=== PATIENT | female | born 1975 | race American Indian/Alaskan Native ===

== ENCOUNTER 2018-04-19 14:12 | Observation (INO) | payer OTHER ==
[2018-04-19 14:16] VITALS: BMI 37.8
[2018-04-19 14:54] LABS: GRAN # 4.21 (1.4-6.5); GRAN % 69.3 % (50.0-68.0); HEMOGLOBIN 11.8 g/dL (12.0-16.0); LYMPH # 1.5 (1.2-3.4); LYMPH % 24.9 % (22.0-35.0); MEAN CORPUSCULAR HEMOGLOBIN 28.2 pg (25.0-35.0); MEAN PLATELET VOLUME 10.4 fl (7.0-11.0); MONO # 0.4 (0.1-0.6); MONO % 5.8 % (1.0-6.0); RBC 4.18 10^6/uL (3.5-6.1); WHITE BLOOD COUNT 6.1 10^3/ul (4.5-11.0)
[2018-04-19 15:04] LABS: ALB/GLOB RATIO 1.3 (1.1-1.8); ALT/SGPT 19 U/L (7-56); AST/SGOT 16 U/L (14-36); BLOOD UREA NITROGEN 10 mg/dL (7-21); CALCIUM 9.1 mg/dL (8.4-10.5); GFR AFRICAN-AMERICAN > 60; GFR NON-AFRICAN AMERICAN > 60
[2018-04-19 15:15] LABS: TROPONIN I < 0.01 ng/mL
--- NOTE | 2018-04-19 15:50 | ED PDOC ---
Arrival/HPI - General Chief Complaint: Chest Pain Time Seen by Provider: 04/19/18 14:36 Historian: Patient - History of Present Illness Narrative History of Present Illness (Text): 04/19/18 15:45 A 42 y/o F w/ h/o benign intrathoracic tumor s/p resection in 09/2017, presents to the emergency department complaining of mid-sternal chest pain ongoing for the last couple of days. Patient reports also experiencing pluerisy worsened with inspiration, and some left lower extremity pain. She reports her symptoms similar to when her previous tumor was diagnosed. She denies any recent OCP use , recent travel, history of chemotherapy, lower extremity edema, back pain, syncopal episodes, family history of hypercoagulability or bleeding disorders at this time. Patient denies fever, chills, back pain, abdominal pain, weakness , headaches or any other complaints at this time. PMD: Dr. Quezada Time/Duration: < week (4 days) Symptom Onset: Sudden Symptom Course: Unchanged Past Medical History - Provider Review Nursing Documentation Reviewed: Yes - Travel History Have you recently traveled outside [place] w/in the past 3 mons?: No - Infectious Disease Hx of Infectious Diseases: None - Musculoskeletal/Rheumatological Hx Falls: No - Gastrointestinal Hx Gastritis: Yes - Psychiatric Hx Substance Use: No - Surgical History Other/Comment: tumor removed in between the lung and heart sep 16, 2017 - Anesthesia Hx Anesthesia: Yes Hx Anesthesia Reactions: No Hx Malignant Hyperthermia: No - Suicidal Assessment Feels Threatened In Home Enviroment: No Family/Social History - Physician Review Nursing Documentation Reviewed: Yes Family/Social History: No Known Family HX Smoking Status: Current Some Days Smoker Hx Alcohol Use: No Hx Substance Use: No Allergies/Home Meds Allergies/Adverse Reactions: Allergies peanut Allergy (Verified 06/25/17 17:15) RASH Review of Systems - Physician Review All systems were reviewed & negative as marked: Yes - Review of Systems Constitutional: absent: Fevers, Night Sweats Respiratory: SOB, Cough (dry cough last night before going to sleep.) Cardiovascular: Chest Pain (central pleuritic chest pain.) Gastrointestinal: absent: Abdominal Pain, Constipation, Diarrhea Genitourinary Female: absent: Dysuria, Hematuria Musculoskeletal: absent: Back Pain, Neck Pain, Other (no bilateral leg swelling ; patient notes some pain of left calf region) Skin: absent: Rash, Skin Lesions Neurological: absent: Headache, Dizziness, Focal Weakness Psychiatric: absent: Anxiety Physical Exam Vital Signs Reviewed: Yes Vital Signs Temp Pulse Resp BP Pulse Ox 04/19/18 16:54 86 19 155/119 H 100 04/19/18 14:12 98.3 F 101 H 18 140/80 97 Temperature: Afebrile Blood Pressure: Normal Pulse: Regular Respiratory Rate: Normal Appearance: Positive for: Well-Appearing Pain Distress: None Mental Status: Positive for: Alert and Oriented X 3 - Systems Exam Head: Present: Atraumatic, Normocephalic Pupils: Present: PERRL Extroacular Muscles: Present: EOMI Conjunctiva: Present: Normal Mouth: Present: Moist Mucous Membranes Neck: Present: Normal Range of Motion Respiratory/Chest: Present: Clear to Auscultation (bilaterally), Good Air Exchange. No: Respiratory Distress, Accessory Muscle Use, Wheezes, Rales, Rhonchi Cardiovascular: Present: Regular Rate and Rhythm, Normal S1, S2. No: Murmurs Abdomen: No: Tenderness, Distention, Peritoneal Signs Back: Present: Other (healed surgical scar to right-side of back) Upper Extremity: Present: Normal Inspection. No: Cyanosis, Edema Lower Extremity: Present: Normal Inspection. No: Edema Neurological: Present: GCS=15, CN II-XII Intact, Speech Normal Skin: Present: Warm, Dry, Normal Color. No: Rashes Psychiatric: Present: Alert, Oriented x 3, Normal Insight, Normal Concentration Medical Decision Making ED Course and Treatment: 04/19/18 15:50 Impression: 42 year old female with central pleuritic chest pain. HEART Score:1 PERC Score: 0 Wells Score: 1 Patient has history of surgery that was performed in September 2017, however, based on clinical presentation cannot have PE ruled out. She will have D dimer performed and will be reassessed for any changes in her chest pain. CTPE will be considered if D-dimer elevated. Differential Diagnosis included but are not limited to: Myocarditis/Pericarditis PNA PE Costochondritis Plan: -- EKG -- Chest X-ray -- Labs --CTPE -- Reassess and disposition Progress Notes: 04/19/2018 16:05 Chest X-ray IMPRESSION: No active disease. Dictator: Cain Mcgee MD 04/19/18 18:04 D-dimer noted to be elevated. Troponin negative with CXR showing Shared decision making discussion with patient regarding the need for CT scan to rule out PE, desiring to proceed with the imaging study. CTPE ordered. 04/19/18 20:08 CTPE shows no major PE, but cannot exclude subsegmental PE. Discussion with patient to stay for Observation in hospital for repeat V/Q scan in the morning. Patient acknowledges plan for Observation and is willing to stay. Call placed to Dr. Palmer. 04/19/18 20:[address] Palmer who accepts patient onto her service for Observation. - Lab Interpretations Lab Results: 04/19/18 14:30 04/19/18 14:30 Lab Results 04/19/18 15:26: Urine HCG, Qual Negative 04/19/18 14:30: PT 12.3, INR 1.08, APTT 31.2, D-Dimer, Quantitative 288 H 04/19/18 14:30: Sodium 143, Potassium 3.7, Chloride 106, Carbon Dioxide 26, Anion Gap 14, BUN 10, Creatinine 0.7, Est GFR ( Amer) > 60, Est GFR (Non- Af Amer) > 60, Random Glucose 108, Calcium 9.1, Total Bilirubin 0.6, AST 16, ALT 19, Alkaline Phosphatase 61, Troponin I < 0.01, Total Protein 7.1, Albumin 4.0, Globulin 3.1, Albumin/Globulin Ratio 1.3 04/19/18 14:30: WBC 6.1, RBC 4.18, Hgb 11.8 L, Hct 34.7 L, MCV 83.0 D, MCH 28.2 , MCHC 34.0, RDW 14.0, Plt Count 216, MPV 10.4, Gran % 69.3 H, Lymph % (Auto) 24.9, [place] % (Auto) 5.8, Eos % (Auto) 0.0 L, Baso % (Auto) 0.0, Gran # 4.21, Lymph # (Auto) 1.5, [place] # (Auto) 0.4, Eos # (Auto) 0.0, Baso # (Auto) 0.00 - RAD Interpretation Radiology Orders: 04/19/18 14:36 CHEST TWO VIEWS (PA/LAT) [RAD] Stat 04/19/18 18:02 ANGIO CHEST PE PROTOCOL [CT] Stat - EKG Interpretation EKG Interpretation (Text): NSR @ 95 w/ no ST depressions or elevations. No T wave inversions Interpreted by ED Physician: Yes Type: 12 lead EKG - Medication Orders Current Medication Orders: Discontinued Medications Enoxaparin Sodium (Lovenox) 40 mg SC STAT STA PRN Reason: Protocol Stop: 04/19/18 20:19 Ketorolac Tromethamine (Toradol) 60 mg IM STAT STA Stop: 04/19/18 16:34 Last Admin: 04/19/18 16:55 Dose: 60 mg MAR Pain Assessment Document 04/19/18 16:55 SRE (Rec: 04/19/18 16:57 SRE [id number]) Pain Reassessment Is this a pain reassessment? Yes Sleep Is patient sleeping during reassessment? No Presence of Pain Presence of Pain Yes Pain Scale Used Pain Scale Used Numeric Location Pain Location Body Site Chest Description Description Intermittent IM Administration Charges Document 04/19/18 16:55 SRE (Rec: 04/19/18 16:57 SRE [id number]) Charges for Administration # of IM Administrations 1 Oxycodone/Acetaminophen (Percocet 5/325 Mg Tab) 1 tab PO STAT STA Stop: 04/19/18 19:41 Last Admin: 04/19/18 20:01 Dose: 1 tab MAR Pain Assessment Document 04/19/18 20:01 SS (Rec: 04/19/18 20:14 SS [facility] [id number] Pain Reassessment Is this a pain reassessment? Yes Sleep Is patient sleeping during reassessment? No Presence of Pain Presence of Pain Yes Pain Scale Used Pain Scale Used Numeric Location Pain Location Body Site Chest - Scribe Statement The provider has reviewed the documentation as recorded by the Sharon Fair Provider Scribe Provider Scribe Attestation: All medical record entries made by the Sharon were at my direction and personally dictated by me. I have reviewed the chart and agree that the record accurately reflects my personal performance of the history, physical exam, medical decision making, and the department course for this patient. I have also personally directed, reviewed, and agree with the discharge instructions and disposition. Disposition/Present on Arrival - Present on Arrival Any Indicators Present on Arrival: No History of DVT/PE: No History of Uncontrolled Diabetes: No Urinary Catheter: No History of Decub. Ulcer: No History Surgical Site Infection Following: None - Disposition Have Diagnosis and Disposition been Completed?: Yes Diagnosis: Chest pain Disposition Time: 20:00 Patient Plan: Observation Condition: STABLE
--- NOTE | 2018-04-19 16:07 | RAD ---
Date of service: 04/19/2018 HISTORY: chest pain ongoing for 1 week COMPARISON: No prior. TECHNIQUE: Chest PA and lateral FINDINGS: LUNGS: No active pulmonary disease. PLEURA: No significant pleural effusion identified. No pneumothorax apparent. CARDIOVASCULAR: Mild cardiomegaly OSSEOUS STRUCTURES: No significant abnormalities. VISUALIZED UPPER ABDOMEN: Normal. OTHER FINDINGS: None. IMPRESSION: No active disease.
[2018-04-19 16:44] LABS: INR 1.08; PARTIAL THROMBOPLASTIN TIME 31.2 Seconds (25.1-36.5); PROTHROMBIN TIME 12.3 SECONDS (9.4-12.5)
[2018-04-19] MEDS ORDERED: Iohexol 350 MG/100 ML VIAL ONE (18:41)
[2018-04-19] MEDS ORDERED: Oxycodone/Acetaminophen 5/325 mg Tab PO STA (19:40)
[2018-04-19] MEDS ORDERED: Enoxaparin 40 mg Syringe SC STA (20:18)
[2018-04-19 22:08] VITALS: O2SAT 99
--- NOTE | 2018-04-19 23:45 | CP.PCM.HP ---
<Quentin Brand - Last Filed: 04/20/18 04:51> History of Present Illness - History of Present Illness History of Present Illness: Quentin Brand, PGY-1, History and Physical note for Dr. Trejo. CC: pleuritic chest pain and shortness of breath 42 year old female with past medical history of benign mediastinal mass s/p resection in 09/2017 presents with pleuritic chest pain and shortness of breath that started 4 days ago. Patient reports that pain is worse with inspiration, expiration, and palpation. Patient took Allieve and Oxycodone for the pain, which relieved the pain, however, once the medication wore off, the patient was once again in pain. Patient reports taking phentermine for weight loss in the past but does not take the medication at the moment. Patient reports dizziness, headache, and chronic right arm pain and numbness, and chronic back pain. Patient reports no recent travel. Patient reports having the same symptoms prior to being diagnosed with the mediastinal mass. 12-point ROS was negative except for information above. PMH: mediastinal mass PSH: mediastinal mass resection in 09/2017, 20 years ago Allergies: peanuts FMHx: Mother from CAD. Father from CAD. Grandmother and had history of breast cancer. SHx: smokes 6-7 cigarettes a day for last 18 years. Occassional alcohol use. Patient smokes marijuana daily. Patient works at a salon. PMD: Dr. Quezada Pharmacy: [facility] Insurance: [facility] Present on Admission - Present on Admission Any Indicators Present on Admission: No History of DVT/PE: No History of Uncontrolled Diabetes: No Review of Systems - Constitutional Constitutional: Headache. absent: Chills, Fever, Weight Loss - EENT Eyes: absent: Change in Vision Ears: absent: Decreased Hearing Nose/Mouth/Throat: absent: Sore Throat - Cardiovascular Cardiovascular: Chest Pain (pleuritic) - Respiratory Respiratory: Dyspnea. absent: Cough, Hemoptysis - Gastrointestinal Gastrointestinal: Heartburn, Nausea. absent: Constipation, Diarrhea, Vomiting - Musculoskeletal Musculoskeletal: Back Pain (lower musculoskeletal back pain) - Neurological Neurological: Dizziness, Numbness (right arm), Headaches. absent: Loss of Vision - Psychiatric Psychiatric: absent: Anxiety, Memory Loss Past Patient History - Infectious Disease Hx of Infectious Diseases: None - Past Social History Smoking Status: Current Some Days Smoker - CARDIAC Hx Cardiac Disorders: No - PULMONARY Hx Respiratory Disorders: No - NEUROLOGICAL Hx Neurological Disorder: No - HEENT Hx HEENT Problems: No - RENAL Hx Chronic Kidney Disease: No - ENDOCRINE/METABOLIC Hx Endocrine Disorders: No - HEMATOLOGICAL/ONCOLOGICAL Hx Blood Disorders: No - INTEGUMENTARY Hx Dermatological Problems: No - MUSCULOSKELETAL/RHEUMATOLOGICAL Hx Musculoskeletal Disorders: No - GASTROINTESTINAL Hx Gastrointestinal Disorders: No - GENITOURINARY/GYNECOLOGICAL Hx Genitourinary Disorders: No - PSYCHIATRIC Hx Psychophysiologic Disorder: Yes (smoking marijuana) - SURGICAL HISTORY Hx Surgeries: Yes (c.section ,tumor was removed from midsternal chest) - ANESTHESIA Hx Anesthesia: Yes Hx Anesthesia Reactions: No Hx Malignant Hyperthermia: No Meds Allergies/Adverse Reactions: Allergies Allergy/AdvReac Type Severity Reaction Status Date / Time peanut Allergy RASH Verified 06/25/17 17:15 Physical Exam - Constitutional Appears: Well, Non-toxic - Head Exam Head Exam: ATRAUMATIC, NORMOCEPHALIC - Eye Exam Eye Exam: EOMI, PERRL - Respiratory Exam Respiratory Exam: Clear to Auscultation Bilateral, NORMAL BREATHING PATTERN - Cardiovascular Exam Cardiovascular Exam: REGULAR RHYTHM, RRR - GI/Abdominal Exam GI & Abdominal Exam: Normal Bowel Sounds, Soft - Extremities Exam Extremities exam: Positive for: calf tenderness (left sided), full ROM, normal inspection - Back Exam Back exam: NORMAL INSPECTION - Neurological Exam Neurological exam: Alert, CN II-XII Intact, Oriented x3 - Psychiatric Exam Psychiatric exam: Normal Affect, Normal Mood - Skin Skin Exam: Dry, Intact, Normal Color Results - Vital Signs Recent Vital Signs: Last Vital Signs Temp 98.1 F 04/19/18 23:27 Pulse 88 04/19/18 23:27 Resp 20 04/19/18 23:27 BP 142/94 H 04/19/18 23:27 Pulse Ox 99 04/19/18 23:27 - Labs Result Diagrams: 04/19/18 14:30 04/19/18 14:30 Assessment & Plan - Assessment and Plan (Free Text) Assessment: 42 year old female with past medical history of benign mediastinal mass s/p resection in 09/2017 presents with pleuritic chest pain and shortness of breath that started 4 days ago. Patient was admitted for chest pain secondary to PE vs. costochondritis. Plan: Chest Pain 2/2 to pulmonary embolism vs. costochondritis vs. ACS vs. postsurgical pain syndrome -D-Dimer: elevated at 288. Thus, evaluation for PE is warrented. -Chest CT: no evidence of acute pulmonary embolism up to the major segmental level. One or more very small peripheral pulmonary emboli cannot be excluded. Main pulmonary artery is dilated, similar to prior CT. -V/Q scan ordered to rule out PE due to inconclusive CT for subsegmental PE. -Duplex of bilateral lower extremities to rule out DVT. -EKG: normal sinus rhythm -Troponinx1: <0.01. 2 more troponin levels to be trended every 6 hours to rule out ACS -HgbA1c, Lipid Panel, TSH, ordered to evaluate for cardiac risk factors. -UDS ordered. -Heart healthy diet -Vital signs Q4 -Therapeutic lovenox 100 mg Q12 for suspected DVT/PE -Acetaminophen 650mg Q6PRN for pain Normocytic Anemia -Hgb: 11.8. Baseline from 1 year ago is 13.0 -Continue to monitor. Elevated Blood Pressure likely 2/2 to pain -Patient found to be hypertensive at 155/119 -Patient does not have a history of hypertension and does not take any antihypertensive medications. -Continue to monitor. Smoking Cessation Counseling -Patient counseled extensively regarding smoking cessation. -Patient to be given the option for nicotine patches in hospital and on discharge. Hx of GERD -Patient reports not taking any medication for GERD. -Patient will be started on protonix 40 mg daily in the hospital. Patient seen and examined with Dr. Trejo. - Date & Time Date: 04/19/18 Time: 23:59 <Evangelista Trejo - Last Filed: 04/20/18 06:16> Results - Vital Signs Recent Vital Signs: Last Vital Signs Temp 98.9 F 04/20/18 06:00 Pulse 80 04/20/18 06:00 Resp 18 04/20/18 06:00 BP 137/90 04/20/18 06:00 Pulse Ox 99 04/20/18 06:00 - Labs Result Diagrams: 04/19/18 14:30 04/19/18 14:30 Labs: Laboratory Results - last 24 hr 04/20/18 00:05 Troponin I < 0.01 Attending/Attestation - Attestation I have personally seen and examined this patient.: Yes I have fully participated in the care of the patient.: Yes I have reviewed all pertinent clinical information: Yes Notes (Text): Chest pain is unlikely cardiac in origin. But will have to r/o ACS. Given her elevated D-dimer, with recent surgery and history of smoking PE has to be ruled out. Will f/u V/Q scan findings. c/w therapeutic lovenox for now. US Dop of Lyndsay/Wilfredo FIELD. 04/20/18 06:14
[2018-04-20] MEDS: Pantoprazole 40 mg EC Tab PO SCH (05:25)
[2018-04-20] MEDS ORDERED: Enoxaparin 100 mg Syringe SC SCH (06:00)
[2018-04-20] MEDS: Enoxaparin 120 mg Syringe SC SCH ×2 (08:30→22:19)
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
--- NOTE | 2018-04-20 09:21 | CT ---
Date of service: 04/19/2018 PROCEDURE: CT Chest with contrast (Pulmonary Angiogram) HISTORY: SOB w/ reproducible chest pain, elevated D-dimer COMPARISON: None available. TECHNIQUE: Axial computed tomography images were obtained of the chest in the pulmonary arterial phase of enhancement. Coronal and sagittal reformatted images were created and reviewed. Intravenous contrast dose: 100 cc of Omni 350 Radiation dose: Total exam DLP = 484 mGy-cm. This CT exam was performed using one or more of the following dose reduction techniques: Automated exposure control, adjustment of the mA and/or kV according to patient size, and/or use of iterative reconstruction technique. FINDINGS: PULMONARY ARTERIES: Unremarkable. No pulmonary embolism. AORTA: No acute findings. No thoracic aortic aneurysm. LUNGS: Unremarkable. No nodule, mass or pulmonary consolidation. PLEURAL SPACES: Unremarkable. No effusion or pneumothorax. HEART: Unremarkable. No cardiomegaly. No significant pericardial effusion. Postoperative changes are seen in the mediastinum. There is dilatation of the proximal esophagus. LYMPH NODES: No lymphadenopathy. BONES, CHEST WALL: Unremarkable. No fracture or destructive lesion OTHER FINDINGS: The report concurs with the preliminary [facility] report IMPRESSION: Unremarkable CT pulmonary angiogram. No pulmonary embolus.
--- NOTE | 2018-04-20 09:59 | CARD ---
APPROVED REPORT Date of service: 04/19/2018 EKG Measurement Heart [id number] ID [id number] <Conclusion> Normal sinus rhythm Normal ECG
[2018-04-20 10:37] LABS: GRAN # 2.17 (1.4-6.5); GRAN % 54.8 % (50.0-68.0); HEMOGLOBIN 11.1 g/dL (12.0-16.0); LYMPH # 1.5 (1.2-3.4); LYMPH % 37.9 % (22.0-35.0); MEAN CORPUSCULAR HEMOGLOBIN 28.2 pg (25.0-35.0); MEAN CORPUSCULAR HGB CONC 33.6 g/dl (31.0-37.0); MEAN PLATELET VOLUME 10.4 fl (7.0-11.0); MONO # 0.3 (0.1-0.6); MONO % 7.3 % (1.0-6.0); RBC 3.93 10^6/uL (3.5-6.1); RED CELL DISTRIBUTION WIDTH 13.9 % (11.5-14.5)
--- NOTE | 2018-04-20 10:48 | NM ---
Date of service: 04/20/2018 COMPARISON: April 19, 2018. Two-view chest. April 19, 2018. CT pulmonary angiogram tto TECHNIQUE: 38.2 mCi technetium 99-m Xe-133 Gas. 3.8 mCI technetium 99-m MAA administered intravenously. FINDINGS: VENTILATION COMPONENT: Normal.Retention of radionuclide in the tracheobronchial tree and ingestion of radionuclide in the stomach, incidental findings PERFUSION COMPONENT: Heterogeneous distribution of radionuclide. No geographic, segmental, lobar abnormalities apparent on the present examination. IMPRESSION: Low probability ventilation perfusion scan for pulmonary embolism.
[2018-04-20 10:56] LABS: ALB/GLOB RATIO 1.3 (1.1-1.8); ALBUMIN 3.5 g/dL (3.0-4.8); ALT/SGPT 16 U/L (7-56); AST/SGOT 12 U/L (14-36); BLOOD UREA NITROGEN 11 mg/dL (7-21); CALCIUM 8.8 mg/dL (8.4-10.5); GFR AFRICAN-AMERICAN > 60; GFR NON-AFRICAN AMERICAN > 60; HDL CHOLESTEROL 40 mg/dL (29-60)
[2018-04-20 11:00] LABS: LDL CHOLESTEROL 113 mg/dL (0-129)
[2018-04-20 11:03] LABS: TROPONIN I < 0.01 ng/mL
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
--- NOTE | 2018-04-20 11:50 | US ---
HISTORY: Leg pain and swelling. Evaluate for DVT PHYSICIAN(S): Ronan Esteves MD. TECHNIQUE: Duplex sonography and color-flow Doppler with graded compression were used to evaluate the deep venous systems of both lower extremities. FINDINGS: The visualized deep venous systems of both lower extremities are sonographically normal and compressible. Normal wave forms and augmentation are seen. There is no sonographic evidence for deep venous thrombosis in the visualized segments of both lower extremities. IMPRESSION: No sonographic evidence for deep venous thrombosis in the visualized segments of both lower extremities.
--- NOTE | 2018-04-20 18:47 | CARD ---
APPROVED REPORT Date of service: 04/20/2018 EXAM: Two-dimensional and M-mode echocardiogram with Doppler and color Doppler. INDICATION CP, PAST MEDIASTINAL MASS 2D DIMENSIONS Left Atrium (2D)3.0 (1.6-4.0cm)IVSd1.2 (0.7-1.1cm) LVDd4.7 (3.9-5.9cm)PWd1.3 (0.7-1.1cm) LVDs3.2 (2.5-4.0cm)FS (%) 33.2 % LVEF (%)61.8 (>50%) M-Mode DIMENSIONS Aortic Root2.80 (2.2-3.7cm)Aortic Cusp Exc.1.90 (1.5-2.0cm) Aortic Valve AoV Peak Bruusedl317.0cm/Lizzie Peak GR.8mmHg Mitral Valve MV E Alhmkmke74.0cm/sMV A Uasikwpu34.3cm/sE/A ratio0.9 TDI Lateral E' Peak V9.55cm/sMedial E' Peak V8.04cm/sE/Lateral E'5.7 E/Medial E'6.7 Tricuspid Valve TR Peak Jcbpaite638ka/sRAP [id number] Peak Gr.15mmHg [id number] LEFT VENTRICLE The left ventricle is normal size. There is mild concentric left ventricular hypertrophy. The left ventricular function is normal.EF-55-60% There is normal LV segmental wall motion. Transmitral Doppler flow pattern is Grade III-reversible restrictive diastolic dysfunction. No left ventricle thrombus noted on this study. There is no ventricular septal defect visualized. There is no left ventricular aneurysm. There is no mass noted in the left ventricle. RIGHT VENTRICLE The right ventricle is normal size. There is normal right ventricular wall thickness. The right ventricular systolic function is normal. ATRIA The left atrium size is normal. The right atrium size is normal. The interatrial septum is intact with no evidence for an atrial septal defect. AORTIC VALVE The aortic valve is normal in structure. No aortic regurgitation is present. There is no aortic valvular stenosis. There is no aortic valvular vegetation. MITRAL VALVE The mitral valve is thickened but opens well. Mitral regurgitation is mild.eccentric Jet posteriorly directed. There is no mitral valve stenosis. There is no evidence of mitral valve prolapse. TRICUSPID VALVE The tricuspid valve leaflets are thickened , but open well. There is trace tricuspid regurgitation.RVSP-25 mmof Hg. There is no tricuspid valve stenosis. There is no tricuspid valve prolapse or vegetation. PULMONIC VALVE The pulmonary valve is normal in structure. There is no pulmonic valvular regurgitation. There is no pulmonic valvular stenosis. GREAT VESSELS The aortic root is normal in size. The ascending aorta is normal in size. The pulmonary artery is normal. The IVC is normal in size and collapses >50% with inspiration. PERICARDIAL EFFUSION There is no pleural effusion. Trivial Pericardial effusion <Conclusion> Normal chamber Size. EF-55-60% Mitral regurgitation is mild.eccentric Jet posteriorly directed. There is trace tricuspid regurgitation.RVSP-25 mmof Hg. The IVC is normal in size and collapses >50% with inspiration. Trivial Pericardial effusion. No Intracardiac Mass or thrombus or Vegetation noted.
[2018-04-20 23:24] VITALS: RESP 18
[2018-04-21 05:16] LABS: GRAN # 2.11 (1.4-6.5); GRAN % 49.7 % (50.0-68.0); HEMOGLOBIN 11.2 g/dL (12.0-16.0); LYMPH # 1.8 (1.2-3.4); LYMPH % 42.8 % (22.0-35.0); MEAN CELL VOLUME 83.5 fl (80.0-105.0); MEAN CORPUSCULAR HEMOGLOBIN 28.1 pg (25.0-35.0); MEAN CORPUSCULAR HGB CONC 33.6 g/dl (31.0-37.0); MEAN PLATELET VOLUME 10.4 fl (7.0-11.0); MONO # 0.3 (0.1-0.6); MONO % 7.5 % (1.0-6.0); RBC 3.99 10^6/uL (3.5-6.1); RED CELL DISTRIBUTION WIDTH 13.8 % (11.5-14.5); WHITE BLOOD COUNT 4.3 10^3/ul (4.5-11.0)
[2018-04-21 05:45] VITALS: BP 144/86; TEMP 98
[2018-04-21] MEDS: Pantoprazole 40 mg EC Tab PO SCH (05:47)
[2018-04-21 06:38] LABS: ALB/GLOB RATIO 1.2 (1.1-1.8); ALBUMIN 3.5 g/dL (3.0-4.8); ALT/SGPT 24 U/L (7-56); AST/SGOT 14 U/L (14-36); BLOOD UREA NITROGEN 11 mg/dL (7-21); CALCIUM 8.5 mg/dL (8.4-10.5); GFR AFRICAN-AMERICAN > 60; GFR NON-AFRICAN AMERICAN > 60
[2018-04-21 11:06] VITALS: PULSE 60
--- NOTE | 2018-04-21 13:51 | CP.PCM.DIS ---
Provider - Provider Date of Admission: 04/19/18 20:16 Attending physician: Jaime Hawkins MD Primary care physician: Nesha Quezada DO Consults: Pulmonology Cardiology Time Spent in preparation of Discharge (in minutes): 70 Hospital Course - Lab Results Lab Results: Most Recent Lab Values WBC 4.3 10^3/ul (4.5-11.0) L 04/21/18 04:05 RBC 3.99 10^6/uL (3.5-6.1) 04/21/18 04:05 Hgb 11.2 g/dL (12.0-16.0) L 04/21/18 04:05 Hct 33.3 % (36.0-48.0) L 04/21/18 04:05 MCV 83.5 fl (80.0-105.0) 04/21/18 04:05 MCH 28.1 pg (25.0-35.0) 04/21/18 04:05 MCHC 33.6 g/dl (31.0-37.0) 04/21/18 04:05 RDW 13.8 % (11.5-14.5) 04/21/18 04:05 Plt Count 230 10^3/uL (120.0-450.0) 04/21/18 04:05 MPV 10.4 fl (7.0-11.0) 04/21/18 04:05 Gran % 49.7 % (50.0-68.0) L 04/21/18 04:05 Lymph % (Auto) 42.8 % (22.0-35.0) H 04/21/18 04:05 [place] % (Auto) 7.5 % (1.0-6.0) H 04/21/18 04:05 Eos % (Auto) 0.0 % (1.5-5.0) L 04/21/18 04:05 Baso % (Auto) 0.0 % (0.0-3.0) 04/21/18 04:05 Gran # 2.11 (1.4-6.5) 04/21/18 04:05 Lymph # (Auto) 1.8 (1.2-3.4) 04/21/18 04:05 [place] # (Auto) 0.3 (0.1-0.6) 04/21/18 04:05 Eos # (Auto) 0.0 (0.0-0.7) 04/21/18 04:05 Baso # (Auto) 0.00 K/mm3 (0.0-2.0) 04/21/18 04:05 PT 12.3 SECONDS (9.4-12.5) 04/19/18 14:30 INR 1.08 04/19/18 14:30 APTT 31.2 Seconds (25.1-36.5) 04/19/18 14:30 D-Dimer, Quantitative 288 ng/mlDDU (0-243) H 04/19/18 14:30 Sodium 140 mmol/L (132-148) 04/21/18 04:05 Potassium 3.7 mmol/L (3.6-5.0) 04/21/18 04:05 Chloride 107 mmol/L (98-107) 04/21/18 04:05 Carbon Dioxide 24 mmol/L (21-33) 04/21/18 04:05 Anion Gap 14 (10-20) 04/21/18 04:05 BUN 11 mg/dL (7-21) 04/21/18 04:05 Creatinine 0.7 mg/dl (0.7-1.2) 04/21/18 04:05 Est GFR ( Amer) > 60 04/21/18 04:05 Est GFR (Non-Af Amer) > 60 04/21/18 04:05 Random Glucose 116 mg/dL (70-110) H 04/21/18 04:05 Calcium 8.5 mg/dL (8.4-10.5) 04/21/18 04:05 Phosphorus 3.5 mg/dL (2.5-4.5) 04/20/18 10:10 Magnesium 1.9 mg/dL (1.7-2.2) 04/20/18 10:10 Total Bilirubin 0.4 mg/dL (0.2-1.3) 04/21/18 04:05 AST 14 U/L (14-36) 04/21/18 04:05 ALT 24 U/L (7-56) 04/21/18 04:05 Alkaline Phosphatase 58 U/L (38-126) 04/21/18 04:05 Troponin I < 0.01 ng/mL 04/20/18 10:10 Total Protein 6.5 g/dL (5.8-8.3) 04/21/18 04:05 Albumin 3.5 g/dL (3.0-4.8) 04/21/18 04:05 Globulin 2.9 gm/dL 04/21/18 04:05 Albumin/Globulin Ratio 1.2 (1.1-1.8) 04/21/18 04:05 Triglycerides 59 mg/dL (35-160) 04/20/18 10:10 Cholesterol 163 mg/dL (130-200) 04/20/18 10:10 LDL Cholesterol Direct 113 mg/dL (0-129) 04/20/18 10:10 HDL Cholesterol 40 mg/dL (29-60) 04/20/18 10:10 Urine HCG, Qual Negative (NEGATIVE) 04/19/18 15:26 - Hospital Course Hospital Course: Ms. Rey is a 42 year old female with past medical history of benign mediastinal mass s/p resection in 09/2017 who presented with pleuritic chest pain and shortness of breath that started 4 days ago. Patient reported that pain is worse with inspiration, expiration, and palpation. Patient took Aleve and Oxycodone for the pain. Patient reported dizziness, headache, and chronic right arm pain and numbness, and chronic back pain. Patient reported having the same symptoms prior to being diagnosed with the mediastinal mass. In the ED, patient had a Chest CT that showed no evidence of an acute pulmonary embolism up to the major segmental level. Duplex of LE showed no DVT. EKG was NSR. D-dimer was elevated at 288. Troponins were negative x4. She was given 100mg lovenox q12 and was admitted to rule out PE. Upon admission, pt reported continuation of chest pain with breathing. Physical exam was unremarkable except for tenderness to palpation of sternum. Pulmonology was consulted and recommended continuation of management and outpatient PFTs. Cardiology was consulted but did not see the patient. ECHO was ordered which showed mild mitral and tricuspid regurgitation and grade III diastolic dysfunction of the left ventricle. VQ scan showed a low probability of PE. Lovenox was discontinued. The following day, the pt reported improvement of chest pain. She wished to leave the hospital, as she did not want to wait any longer to be seen by the metal punch press operator. Risks of leaving the hospital before treatment is completed were communicated to the patient, and benefits of staying were also communicated. Pt comprehended, and chose to sign out against medical advice. Discharge Exam - Head Exam Head Exam: ATRAUMATIC, NORMOCEPHALIC - Eye Exam Eye Exam: EOMI, PERRL Pupil Exam: NORMAL ACCOMODATION - ENT Exam ENT Exam: Mucous Membranes Moist - Respiratory Exam Respiratory Exam: Clear to PA & Lateral, NORMAL BREATHING PATTERN. absent: Rales, Wheezes, Respiratory Distress, Stridor - Cardiovascular Exam Cardiovascular Exam: REGULAR RHYTHM, +S1, +S2. absent: Gallop, Rubs, Systolic Murmur - GI/Abdominal Exam GI & Abdominal Exam: Normal Bowel Sounds, Soft. absent: Distended, Tenderness - Extremities Exam Extremities exam: normal inspection - Back Exam Back exam: NORMAL INSPECTION - Neurological Exam Neurological exam: Alert, Oriented x3 - Psychiatric Exam Psychiatric exam: Normal Affect, Normal Mood - Skin Skin Exam: Normal Color - Additional Findings Additional findings: chest: tenderness to palpation of sternum Discharge Plan - Follow Up Plan Condition: STABLE Disposition: AGAINST MEDICAL ADVICE Instructions: Chest Pain (ED)
== END 2018-04-21 12:11 | disposition left against medical advice (07) ==
LOC: ED 14:12 → ERH 20:16 → 2RNO 22:48
PROVIDERS: ADMIT Hospitalist; ATTEND Internal Medicine
DX: R07.9 Chest pain, unspecified (principal); D64.9 Anemia, unspecified; E66.9 Obesity, unspecified; F17.210 Nicotine dependence, cigarettes, uncomplicated; F12.90 Cannabis use, unspecified, uncomplicated; G89.29 Other chronic pain; I08.1 Rheumatic disorders of both mitral and tricuspid valves; R79.1 Abnormal coagulation profile; Z80.3 Family history of malignant neoplasm of breast; Z82.49 Family history of ischemic heart disease and other diseases of the circulatory system; Z68.37 Body mass index [BMI] 37.0-37.9, adult
CPT/HCPCS: 36415; 71046; 71275; 78582; 80053; 80061; 83735; 84100; 84484; 84703; 85025; 85378; 85610; 85730; 93005; 93306; 93970; 96372; 99285; G0378; J1650; J1885; Q9967